=== PATIENT | male | born 1985 | race Hispanic/Latino ===

== ENCOUNTER 2019-08-03 12:35 | Emergency (ER) | payer OTHER ==
[2019-08-03] MEDS ORDERED: SODIUM CHLORIDE 0.9% 1000ML 1,000 ML IV ONE (13:09)
[2019-08-03] MEDS ORDERED: METOCLOPRAMIDE 10 MG/2 ML VIAL ONE (13:11)
[2019-08-03 13:27] LABS: BASOPHILS % (AUTO) 0.1 % (0.0-5.0); EOSINOPHILS % (AUTO) 0.1 % (0.0-8.0); HEMATOCRIT 40.7 % (42-54); LYMPHOCYTES % (AUTO) 4.1 % (21.0-51.0); MEAN CORPUSCULAR HEMOGLOBIN 33.3 pg (27.0-33.0); MEAN CORPUSCULAR HGB CONC 35.6 g/dL (32.0-36.0); MEAN CORPUSCULAR VOLUME 93.7 fL (79-99); MONOCYTES % (AUTO) 2.7 % (3.0-13.0); PLATELET COUNT (AUTO) 203 K/uL (130-400); RED BLOOD CELL COUNT(AUTO) 4.34 MIL/uL (4.50-6.20); RED CELL DISTRIBUTION WIDTH 12.9 % (11.0-15.5); WHITE BLOOD COUNT (AUTO) 18.7 K/uL (4.8-10.8)
[2019-08-03 13:36] LABS: CREATININE 0.8 mg/dL (0.5-1.5); POTASSIUM 3.6 mmol/L (3.5-5.1)
[2019-08-03 13:38] LABS: APPEARANCE,URINE Clear (CLEAR); BILIRUBIN,URINE Negative (NEGATIVE); COLOR,URINE Yellow (YELLOW); GLUCOSE, URINE (UA) Negative (NEGATIVE); KETONES,URINE 40 mg/dL (NEGATIVE); LEUKOCYTE ESTERASE ,URINE Trace (NEGATIVE); NITRATE,URINE Negative (NEGATIVE); OCCULT BLOOD,URINE Trace (NEGATIVE); PROTEIN,URINE POS 2+ mg/dL (NEGATIVE)
[2019-08-03 13:41] LABS: ALBUMIN 2.8 g/dL (3.5-5.0); BILIRUBIN,TOTAL 1.3 mg/dL (0.2-1.0)
[2019-08-03 13:46] LABS: AMPHET/METH SCREEN,URINE NEGATIVE (NEGATIVE); BARBITURATE SCREEN, URINE NEGATIVE (NEGATIVE); BENZODIAZEPINES SCREEN,URINE NEGATIVE (NEGATIVE); CANNABINOID SCREEN,URINE POSITIVE (NEGATIVE); COCAINE SCREEN,URINE NEGATIVE (NEGATIVE); OPIATE SCREEN,URINE NEGATIVE (NEGATIVE); PHENCYCLIDINE SCREEN,URINE NEGATIVE (NEGATIVE)
[2019-08-03 14:21] LABS: BACTERIA,URINE Few /HPF (None Seen); MUCUS,URINE None Seen LPF (None Seen); SQUAMOUS EPITHELIAL CELL,UR 0-2 /HPF (0-2); WBC,URINE 0-1 /HPF (0-1)
[2019-08-03] MEDS ORDERED: HALOPERIDOL LACTATE 5 MG/ML VIAL ONE (16:13)
== END 2019-08-03 17:49 | disposition home or self-care (01) ==
LOC: EDH 12:35
DX: B34.9 Viral infection, unspecified (principal); R80.9 Proteinuria, unspecified; E88.09 Other disorders of plasma-protein metabolism, not elsewhere classified; R11.2 Nausea with vomiting, unspecified; R50.9 Fever, unspecified
CPT/HCPCS: 36415; 74176; 80053; 80305; 81001; 83690; 85025; 87804 ×2; 93005; 96361; 96372; 96374; 99285; J1630; J2765; J7030

== ENCOUNTER 2019-08-06 18:22 | Inpatient (IN) | payer SELFPAY ==
[~2019-08-06] VITALS: Ht 188 cm; Wt 81.8 kg
[2019-08-06] MEDS ORDERED: ONDANSETRON HCL 4 MG/2 ML VIAL ONE (19:31)
[2019-08-06] MEDS ORDERED: LEVOFLOXACIN 750 MG/D5W 150 ML 150 ML ONE (19:31)
[2019-08-06] MEDS ORDERED: SODIUM CHLORIDE 0.9% 1000ML 1,000 ML IV ONE ×2 (19:32→21:48)
[2019-08-06 20:00] LABS: APPEARANCE,URINE Turbid (CLEAR); BILIRUBIN,URINE Negative (NEGATIVE); COLOR,URINE Yellow (YELLOW); GLUCOSE, URINE (UA) Negative (NEGATIVE); KETONES,URINE 40 mg/dL (NEGATIVE); LEUKOCYTE ESTERASE ,URINE Negative (NEGATIVE); NITRATE,URINE Negative (NEGATIVE); OCCULT BLOOD,URINE Negative (NEGATIVE); PH,URINE >=9.0 (5.0-8.0); PROTEIN,URINE Trace mg/dL (NEGATIVE)
[2019-08-06 20:09] LABS: AMPHET/METH SCREEN,URINE NEGATIVE (NEGATIVE); BARBITURATE SCREEN, URINE NEGATIVE (NEGATIVE); BENZODIAZEPINES SCREEN,URINE NEGATIVE (NEGATIVE); CANNABINOID SCREEN,URINE POSITIVE (NEGATIVE); COCAINE SCREEN,URINE NEGATIVE (NEGATIVE); OPIATE SCREEN,URINE NEGATIVE (NEGATIVE); PHENCYCLIDINE SCREEN,URINE NEGATIVE (NEGATIVE)
[2019-08-06 20:14] LABS: BACTERIA,URINE Rare /HPF (None Seen); SQUAMOUS EPITHELIAL CELL,UR 0-2 /HPF (0-2); WBC,URINE 0-1 /HPF (0-1)
[2019-08-06 20:15] LABS: AMORPHOUS SEDIMENT,UR Many /LPF (None Seen); MUCUS,URINE None Seen LPF (None Seen)
[2019-08-06] MEDS ORDERED: SODIUM CHLORIDE 0.9% 1000ML 1,000 ML IV SCH (20:27)
[2019-08-06] MEDS ORDERED: ZOLPIDEM TARTRATE 5 MG TAB PO PRN (20:30)
[2019-08-06] MEDS ORDERED: ACETAMINOPHEN 325 MG TAB PO PRN ×2 (20:30)
[2019-08-06] MEDS ORDERED: ONDANSETRON HCL 4 MG/2 ML VIAL IV PRN (20:30)
[2019-08-06 20:39] LABS: BASOPHILS % (AUTO) 0.5 % (0.0-5.0); EOSINOPHILS % (AUTO) 4.1 % (0.0-8.0); HEMATOCRIT 41.8 % (42-54); LYMPHOCYTES % (AUTO) 9.5 % (21.0-51.0); MEAN CORPUSCULAR HEMOGLOBIN 33.1 pg (27.0-33.0); MONOCYTES % (AUTO) 4.2 % (3.0-13.0); NEUTROPHILS % (AUTO) 81.7 % (40.0-77.0); NUCLEATED RED BLOOD CELLS 0.1 % (0.0-0.19); PLATELET COUNT (AUTO) 328 K/uL (130-400); RED BLOOD CELL COUNT(AUTO) 4.54 MIL/uL (4.50-6.20); WHITE BLOOD COUNT (AUTO) 8.9 K/uL (4.8-10.8)
[2019-08-06 20:58] LABS: CREATININE 0.8 mg/dL (0.5-1.5); POTASSIUM 3.4 mmol/L (3.5-5.1)
[2019-08-06 21:02] LABS: ALBUMIN 2.9 g/dL (3.5-5.0); TOTAL PROTEIN, SERUM 7.4 g/dL (6.0-8.3)
[2019-08-06] MEDS ORDERED: METRONIDAZOLE 500MG/100ML BAG 100 ML ONE (21:47)
[2019-08-06 22:10] VITALS: BP 131/58
--- NOTE | 2019-08-06 22:10 | NUR ---
Admission note: Admitted to floor via stretcher from ER. AOx3. Fully awake and responsive. Denies feeling of pain only feel nauseated. VS checked and recorded. Assesment done. ( see CPOE flow chart for full assessment). IV site to RAC #20 gauge - patent and intact. Oriented to room and use of call light. Policies and procedures explained. Verbalized understanding. Plan of care initiated. Monitored and observed for any unusual changes. Cared for and needs attended. No apparent distress noted.
[2019-08-06] MEDS: METRONIDAZOLE 500MG/100ML BAG 100 ML IV SCH (22:32)
[2019-08-06] MEDS: LACTATED RINGERS 1000ML 1,000 ML IV SCH (23:04)
[2019-08-07] VITALS (7 sets, daily range): BP systolic 107–128; BP diastolic 57–89
[2019-08-07] MEDS: LACTATED RINGERS 1000ML 1,000 ML IV SCH ×2 (05:15→21:09)
[2019-08-07] MEDS: METRONIDAZOLE 500MG/100ML BAG 100 ML IV SCH ×3 (05:15→21:09)
[2019-08-07 06:51] LABS: BASOPHILS % (AUTO) 0.6 % (0.0-5.0); EOSINOPHILS % (AUTO) 2.6 % (0.0-8.0); LYMPHOCYTES % (AUTO) 9.3 % (21.0-51.0); MEAN CORPUSCULAR HEMOGLOBIN 32.9 pg (27.0-33.0); MEAN CORPUSCULAR HGB CONC 35.6 g/dL (32.0-36.0); MEAN CORPUSCULAR VOLUME 92.4 fL (79-99); MONOCYTES % (AUTO) 4.7 % (3.0-13.0); NEUTROPHILS % (AUTO) 82.8 % (40.0-77.0); PLATELET COUNT (AUTO) 294 K/uL (130-400); RED BLOOD CELL COUNT(AUTO) 4.22 MIL/uL (4.50-6.20); RED CELL DISTRIBUTION WIDTH 12.6 % (11.0-15.5); WHITE BLOOD COUNT (AUTO) 9.9 K/uL (4.8-10.8)
[2019-08-07 07:04] LABS: CREATININE 0.8 mg/dL (0.5-1.5); POTASSIUM 3.8 mmol/L (3.5-5.1)
[2019-08-07] MEDS: LEVOFLOXACIN 750 MG/D5W 150 ML 150 ML IV SCH (09:48)
[2019-08-07] MEDS: ENOXAPARIN SODIUM 30 MG/0.3 ML SQ SCH (09:49)
[2019-08-07] MEDS ORDERED: ONDANSETRON HCL 4 MG/2 ML VIAL IV PRN (10:00)
--- NOTE | 2019-08-07 10:00 | NUR ---
DR FIELDS NOTIFIED OF CONSULT VIA PHONE AND SAID TO ADD PATIENT TO HIS CENSUS AND HE WILL SEE HIM TODAY
--- NOTE | 2019-08-07 10:16 | NUR ---
Nutrition Intervention: Nutrition consult due to loss of appetite. Pt. on Full Liquids with 0% p.o. intake, as per pt. Pt. states +Nausea this morning. Pt. on Zofran for upper GI distress. Pt. reports loss of appetite for the past 3 weeks. Pt. reports 20# wt. loss within 3 weeks. Spoke with pt. regarding nutritional supplementation and pt. agreed to try. Labs reviewed(Alb 2.9, Na 128). LBM: 08/06/19. SR-19, elastic. BMI: 23.1, normal. Recommendations: 1) Rec. advance diet as tolerated to GI Soft Crook. 2) Rec. Chocolate/[place] Ensure BID with Lunch and dinner meals. 3) Continue to monitor pt's nutritional status. 4) Consult RD as nutrition concerns arise. Addendum: 08/07/19 at [address] Amended: Links added.
--- NOTE | 2019-08-07 10:47 | NUR ---
DR JO IN TO SEE PATIENT ORDERS FOR SOLU-MEDROL 60MG IV DAILY AND PHENERGAN 25MG IM TIME ONCE . ORDERS PLACED
--- NOTE | 2019-08-07 11:00 | NUR ---
FREDDY ISABEL ROUNDED ON PATIENT AND ORDERS PLACED FOR CT CHEST WITHOUT CONTRAST
[2019-08-07 11:42] LABS: APPEARANCE,URINE Clear (CLEAR); BILIRUBIN,URINE Negative (NEGATIVE); COLOR,URINE Yellow (YELLOW); GLUCOSE, URINE (UA) Negative (NEGATIVE); KETONES,URINE 40 mg/dL (NEGATIVE); LEUKOCYTE ESTERASE ,URINE Negative (NEGATIVE); NITRATE,URINE Negative (NEGATIVE); OCCULT BLOOD,URINE Negative (NEGATIVE); PROTEIN,URINE Negative (NEGATIVE)
[2019-08-07] MEDS: PROMETHAZINE HCL 25 MG/ML 1ML AMPULE IM SCH (12:15)
--- NOTE | 2019-08-07 13:50 | NUR ---
DR FIELDS ROUNDED ON PATIENT ORDERS RECEIVED FOR LABS IN AM TSH 7 URICA ACID
--- NOTE | 2019-08-07 15:00 | NUR ---
INITIAL Met w pt this afternoon to discuss dcp. Pt mentions that he lives w his spouse. Prior to admission he was independent w ambulation and ADLs. He does not own any DME or services. Per pt he feels safe and comfortable to return home at me. Low income packet provided. CM to continue to follow and wait for Md recommendations. Addendum: 08/08/19 at 1833 by SAULO TREVIÑO Amended: Links added.
--- NOTE | 2019-08-07 17:27 | NUR ---
PER Sarah DOVE HAS SIGN OFF CASE WITH NO FOLLOW-UP
[2019-08-08] MEDS ORDERED: LORAZEPAM 1 MG TABLET PO ONE (02:00)
[2019-08-08] MEDS ORDERED: LORAZEPAM 1 MG TABLET ONE (02:00)
[2019-08-08 04:10] VITALS: BP 118/63
[2019-08-08] MEDS: METRONIDAZOLE 500MG/100ML BAG 100 ML IV SCH (05:15)
[2019-08-08 05:46] LABS: BASOPHILS % (AUTO) 0.3 % (0.0-5.0); EOSINOPHILS % (AUTO) 0.8 % (0.0-8.0); HEMATOCRIT 42.7 % (42-54); LYMPHOCYTES % (AUTO) 5.5 % (21.0-51.0); MEAN CORPUSCULAR HEMOGLOBIN 32.7 pg (27.0-33.0); MEAN CORPUSCULAR HGB CONC 34.9 g/dL (32.0-36.0); MEAN CORPUSCULAR VOLUME 93.5 fL (79-99); MONOCYTES % (AUTO) 3.4 % (3.0-13.0); PLATELET COUNT (AUTO) 362 K/uL (130-400); RED BLOOD CELL COUNT(AUTO) 4.57 MIL/uL (4.50-6.20); WHITE BLOOD COUNT (AUTO) 17.3 K/uL (4.8-10.8)
[2019-08-08 06:24] LABS: CREATININE 0.9 mg/dL (0.5-1.5); POTASSIUM 4.3 mmol/L (3.5-5.1); THYROID STIMULATING HORMONE 0.85 uIU/mL (0.36-3.74); URIC ACID 2.9 mg/dL (2.6-7.2)
[2019-08-08 08:10] VITALS: BP 103/61
[2019-08-08] MEDS: PROMETHAZINE HCL 25 MG/ML 1ML AMPULE IM SCH (08:17)
[2019-08-08] MEDS ORDERED: METHYLPREDNISOLONE SOD SUCC 125MG/2ML VIAL IVP SCH (09:00)
[2019-08-08] MEDS ORDERED: PANTOPRAZOLE SODIUM 40 MG TABLET.DR PO SCH (09:00)
[2019-08-08] MEDS: LEVOFLOXACIN 750 MG/D5W 150 ML 150 ML IV SCH (10:10)
[2019-08-08] MEDS: ENOXAPARIN SODIUM 30 MG/0.3 ML SQ SCH (10:11)
[2019-08-08 12:20] VITALS: BP 99/65
--- NOTE | 2019-08-08 13:11 | NUR ---
DR FIELDS ROUNDED ON PATIENT ORDERS RECEIVE FOR BMP IN AM AND D/C IV FLUIDS AFTER THIS BAG INFUSES
[2019-08-08 15:52] VITALS: BP 99/70
[2019-08-08] MEDS ORDERED: PRED10TA23 PO (16:33)
[2019-08-08] MEDS ORDERED: PRED5TAB PO (16:33)
[2019-08-08] MEDS ORDERED: LEVO500T89 PO (16:33)
[2019-08-08] MEDS ORDERED: PRED20TA3 PO (16:33)
[2019-08-08] MEDS ORDERED: PRED10TA3 PO (16:33)
--- NOTE | 2019-08-08 18:43 | NUR ---
DISCHARGE INSTRUCTION GIVEN AND PATIENT VERBALIZED UNDERSTANDING , NO QUESTIONS OR CONCERNS AT THIS TIME. PATIENT INSTRUCTED TI CALL DR OROSCO HIS PRIMARY PHYSICIAN FOR FOLLOW-UP APPOINTMENT IN 1-3. MEDICATIONS REVIEWED , AND IV REMOVED WITH CATHTER INTACT AND SITE DRESSED . PATIENT TAKING BY WHEELCHAIR TO LOBBY AND LEFT WITH FAMILY FOR HOME
== END 2019-08-08 18:40 | disposition home or self-care (01) | DRG 391 ==
LOC: EDH 18:22 → EDHIP 18:23 → 3AH 22:10
PROVIDERS: ADMIT Internal Medicine; ATTEND Internal Medicine
DX: K52.9 Noninfective gastroenteritis and colitis, unspecified (principal); J18.9 Pneumonia, unspecified organism; E87.1 Hypo-osmolality and hyponatremia; S27.309A Unspecified injury of lung, unspecified, initial encounter; E66.9 Obesity, unspecified; E87.6 Hypokalemia; F12.10 Cannabis abuse, uncomplicated; F17.290 Nicotine dependence, other tobacco product, uncomplicated; Z68.23 Body mass index [BMI] 23.0-23.9, adult; Y93.89 Activity, other specified; Y92.89 Other specified places as the place of occurrence of the external cause; Y99.8 Other external cause status
CPT/HCPCS: 36415; 71045; 80048; 80053; 80305; 81001; 81003; 83605; 83690; 83880; 83930; 83935; 84300; 84443; 84484; 84550; 85025; 87040; 87486; 87581; 87633; 87798; 93005; C9113; G0378; J1650; J1956; J2405; J2550; J2930; J3490; J7030; J7120